=== PATIENT | male | born 1960 | race African-American/Black ===

== ENCOUNTER → 2017-12-19 | Outpatient (CLI) | payer OTHER ==
--- NOTE | 2017-12-19 14:58 | RAD ---
EXAM: AP and lateral views of the lumbar spine DATE: 12/19/2017 12:00 AM INDICATION: DEGENERATIVE DISC DISEASE, LOW BACK PAIN COMPARISON: No Prior FINDINGS: There are 5 nonrib-bearing lumbar-type vertebral bodies. Vertebral body heights are preserved. Mild L3-4 and L4-5 intervertebral disc height loss. There is approximately 2 mm anterolisthesis of L4 on L5. Moderate L3-4, L4-5 and L5-S1 facet degenerative change. IMPRESSION: 1. No evidence for acute fracture 2. Trace anterolisthesis of L4 on L5 is likely degenerative given associated facet degenerative change. Electronically signed by: Earl Ruelas MD (12/19/2017 2:56 PM) [id number]
== END | disposition home or self-care (01) ==
LOC: RAD 10:44
PROVIDERS: ATTEND Neuromusculoskeletal Medicine, Sports Medicine
DX: M51.36 Other intervertebral disc degeneration, lumbar region (principal); M47.896 Other spondylosis, lumbar region
CPT/HCPCS: 72100

== ENCOUNTER → 2018-02-08 | Outpatient (CLI) | payer OTHER ==
[~2018-02-08] MED LIST: ALBUTEROL SULFATE 2.5 MG/3 ML NEBU. NEB ONE
== END | disposition home or self-care (01) ==
LOC: PF 07:46
PROVIDERS: ATTEND Neuromusculoskeletal Medicine, Sports Medicine
DX: R56.9 Unspecified convulsions (principal); I51.9 Heart disease, unspecified; F17.210 Nicotine dependence, cigarettes, uncomplicated
CPT/HCPCS: 94060; 94640; J7613